=== PATIENT | male | born 2000 | race Caucasian/White ===

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

== ENCOUNTER 2019-05-29 12:49 | Emergency (ER) | payer OTHER ==
[2019-05-29] MEDS ORDERED: Diphtheria,Pertussis(Acell),Tetanus Vaccine 0.5 ML Syringe IM ONE (13:00)
--- NOTE | 2019-05-29 13:01 | EDM.PDOC ---
ED HPI GENERAL MEDICAL PROBLEM - General Chief Complaint: General Stated Complaint: SPLIT TOUNGE Time Seen by Provider: 05/29/19 12:56 Source of Information: Reports: Patient History Limitations: Reports: No Limitations - History of Present Illness INITIAL COMMENTS - FREE TEXT/NARRATIVE: HISTORY AND PHYSICAL: History of present illness: Patient is a 19-year-old male who presents to the emergency room with complaints of a tongue laceration which occurred last night. He states yesterday he had fallen while at a concert and hit his head on the ground, his teeth bit his tongue resulting in a "T" shaped laceration to his middle tongue. This occurred approximately 13 hours previous. Denies any loss of consciousness , dizziness, headache or change in vision. He states he is otherwise in good health and offers no other medical concerns or complaints. Review of systems: As per history of present illness and below otherwise all systems reviewed and negative. Past medical history: As per history of present illness and as reviewed below otherwise noncontributory. Surgical history: As per history of present illness and as reviewed below otherwise noncontributory. Social history: See social history for further information Family history: As per history of present illness and as reviewed below otherwise noncontributory. Physical exam: General: Well-developed and well-nourished 19-year-old male. Alert and oriented. Nontoxic appearing and in no acute distress. HEENT: 2 cm x 1.5 cm laceration through the mid tongue. Scalp is nontender, normocephalic, pupils equal and reactive bilaterally, negative for conjunctival pallor or scleral icterus, mucous membranes moist, TMs normal bilaterally, throat clear, neck supple, nontender, trachea midline. No drooling or trismus noted. No meningeal signs. No hot potato voice noted. Lungs: Clear to auscultation, breath sounds equal bilaterally, chest nontender. Heart: S1S2, regular rate and rhythm without overt murmur Abdomen: Soft, nondistended, nontender. Negative for masses or hepatosplenomegaly. Negative for costovertebral tenderness. Pelvis: Stable nontender. Skin: 2 cm x 1.5 cm laceration through the mid tongue. Laceration separates through the tongue. Otherwise skin is intact, warm, dry. No lesions or rashes noted. Extremities: Moves all extremities per self without difficulty or deficits, negative for cords or calf pain. Neurovascular unremarkable. Neuro: Awake, alert, oriented. Cranial nerves II through XII unremarkable. Cerebellum unremarkable. Motor and sensory unremarkable throughout. Exam nonfocal. Notes: We discussed performing a head CT, he declines. He states that he lost no consciousness and feels otherwise healthy. Risks versus benefits of repairing the tongue lock were reviewed with patient. 1% lidocaine was used to anesthetize the area. 4-0 Vicryl sutures were placed to tack the laceration together. #4 interrupted sutures were placed to the anterior tongue, #3 interrupted sutures placed to the bottom of the tongue. We discussed the need for appropriate follow-up with primary care. Medication and supportive care measures were reviewed and discussed. Voices understanding and is agreeable to plan of care. Denies any further questions or concerns at this time. Diagnostics: None Therapeutics: 1% lidocaine, Tdap Prescription: Augmentin Impression: Tongue Laceration Head injury Plan: 1. Keep the area clean and dry. Continue to monitor for signs of infection. Sutures to dissolve on their own in 5-10 days. 2. After each meal please rinse your mouth thoroughly to get rid of any food in the mouth. 3. Take antibiotic as directed. Tylenol and/or ibuprofen as needed for pain management. 4. Please follow-up with your primary care provider in the next 1-2 days. Return to the ED as needed and as discussed. Definitive disposition and diagnosis as appropriate pending reevaluation and review of above. Tongue Pain Score (Numeric/FACES): 8 - Related Data Allergies Allergy/AdvReac Type Severity Reaction Status Date / Time No Known Allergies Allergy Verified 05/29/19 12:56 Home Meds: Home Meds Acetaminophen with Codeine [Tylenol with Codeine #3 Tablet] 1 each PO Q6HR PRN # 15 tablet 05/29/19 [Rx] Amoxicillin/Potassium Clav [Augmentin 875-125 Tablet] 1 each PO BID 10 Days #20 tablet 05/29/19 [Rx] Past Medical History - Past Health History Medical/Surgical History: Denies Medical/Surgical History - Infectious Disease History Infectious Disease History: Reports: Chicken Pox Social & Family History - Family History Family Medical History: Noncontributory ED ROS GENERAL - Review of Systems Review Of Systems: ROS reveals no pertinent complaints other than HPI. ED EXAM, GENERAL - Physical Exam Exam: See Below (See dictation) ED GENERAL MEDICAL PROCEDURES - Laceration/Wound Repair Tongue Lac/wound length in cm: 3.5 (2 x 1.5 cm) Appearance: Muscle, Linear Distal NVT: Neuro & Vascular Intact, No Tendon Injury Anesthetic Type: Local Local Anesthesia - Lidocaine (Xylocaine): 1% Plain Local Anesthetic Volume: 1cc Skin Prep: Chlorhexidine (Hibiciens), Saline Saline irrigation (cc's): 25 Exploration/Debridement/Repair: Wound Explored, No Foreign Material Found Closed with: Sutures Suture Size: 4-0 # of Sutures: 7 Suture Type: Interrupted, Simple Drain Placement: No Sterile Dressing Applied: Provider Tetanus Status Addressed: Yes Complications: No Course - Vital Signs Last Recorded V/S: Last Vital Signs Temp 97.1 F 05/29/19 12:57 Pulse 86 05/29/19 12:57 Resp 17 05/29/19 12:57 BP 114/75 05/29/19 12:57 Pulse Ox 98 05/29/19 12:57 - Orders/Labs/Meds Orders: Active Orders 24 hr Category Date Time Status Vaccines to be Administered [RC] PER UNIT ROUTINE Care 05/29/19 13:00 Active Meds: Medications Discontinued Medications Generic Name Dose Route Start Last Admin Trade Name Freq PRN Reason Stop Dose Admin Diphtheria/Tetanus/Acell Pertussis 0.5 ml 05/29/19 13:00 05/29/19 13:07 Adacel IM 05/29/19 13:01 0.5 ml .ONCE ONE Administration Lidocaine HCl 5 ml 05/29/19 12:59 05/29/19 13:08 Xylocaine-Mpf 1% INJECT 05/29/19 13:00 5 ml ONETIME ONE Administration Departure - Departure Time of Disposition: 13:01 Disposition: Home, Self-Care 01 Clinical Impression: Tongue laceration Qualifiers: Encounter type: initial encounter Qualified Code(s): S01.512A - Laceration without foreign body of oral cavity, initial encounter Head injury Qualifiers: Encounter type: initial encounter Qualified Code(s): S09.90XA - Unspecified injury of head, initial encounter - Discharge Information Prescriptions: Acetaminophen with Codeine [Tylenol with Codeine #3 Tablet] 1 each PO Q6HR PRN # 15 tablet PRN Reason: Pain Amoxicillin/Potassium Clav [Augmentin 875-125 Tablet] 1 each PO BID 10 Days #20 tablet Instructions: Mouth Laceration, [id number], Head Injury, Adult, [id number] Referrals: PCP,None [Primary Care Provider] - Forms: ED Department Discharge Additional Instructions: The following information is given to patients seen in the emergency department who are being discharged to home. This information is to outline your options for follow-up care. We provide all patients seen in our emergency department with a follow-up referral. The need for follow-up, as well as the timing and circumstances, are variable depending upon the specifics of your emergency department visit. If you don't have a primary care physician on staff, we will provide you with a referral. We always advise you to contact your personal physician following an emergency department visit to inform them of the circumstance of the visit and for follow-up with them and/or the need for any referrals to a consulting specialist. The emergency department will also refer you to a specialist when appropriate. This referral assures that you have the opportunity for follow-up care with a specialist. All of these measure are taken in an effort to provide you with optimal care, which includes your follow-up. Under all circumstances we always encourage you to contact your private physician who remains a resource for coordinating your care. When calling for follow-up care, please make the office aware that this follow-up is from your recent emergency room visit. If for any reason you are refused follow-up, please contact the [facility] Emergency Department at and asked to speak to the emergency department charge nurse. [facility] [address] [place] [id number] [address] 1. Keep the area clean and dry. Continue to monitor for signs of infection. Sutures to dissolve on their own in 5-10 days. 2. After each meal please rinse your mouth thoroughly to get rid of any food in the mouth. 3. Take antibiotic as directed. Tylenol and/or ibuprofen as needed for pain management. 4. Please follow-up with your primary care provider in the next 1-2 days. Return to the ED as needed and as discussed. - My Orders Last 24 Hours: My Active Orders 05/29/19 13:00 Vaccines to be Administered [RC] PER UNIT ROUTINE - Assessment/Plan Last 24 Hours: My Active Orders 05/29/19 13:00 Vaccines to be Administered [RC] PER UNIT ROUTINE
== END 2019-05-29 13:33 | disposition home or self-care (01) ==
LOC: MW.ED 12:49
DX: S01.512A Laceration without foreign body of oral cavity, initial encounter (principal); Z23 Encounter for immunization; W22.8XXA Striking against or struck by other objects, initial encounter
CPT/HCPCS: 41252; 90471; 90715; 99282; J2001